=== PATIENT | female | born 1990 | race Caucasian/White ===

== ENCOUNTER → 2018-10-20 | Outpatient (CLI) | payer BC | LOC: OD 10:01 | PROVIDERS: ATTEND Physician Assistant | DX: L70.8 Other acne (principal); Z79.899 Other long term (current) drug therapy | CPT/HCPCS: 36415; 84132 ==

== ENCOUNTER → 2018-11-17 | Outpatient (CLI) | payer BC | LOC: LAB 12:24 | PROVIDERS: ATTEND Physician Assistant | DX: L70.8 Other acne (principal); Z79.899 Other long term (current) drug therapy | CPT/HCPCS: 36415; 84132 ==

== ENCOUNTER → 2018-12-21 | Outpatient (CLI) | payer BC | LOC: OD 12:29 | PROVIDERS: ATTEND Physician Assistant | DX: L70.8 Other acne (principal); Z79.899 Other long term (current) drug therapy | CPT/HCPCS: 36415; 84132 ==

== ENCOUNTER → 2019-10-11 | Outpatient (CLI) | payer BC ==
--- NOTE | 2019-10-11 10:07 | ER [facility] ASSESSMENT REPORT ---
Intake - In the Last 14 days Have you traveled outside [place]?: No Have you been in close contact with someone CONFIRMED: Yes Worked in Healthcare?: Yes --Where?: [facility] - Symptoms Subjective Fever([place] feverish): No Chills: No Muscule Aches: Yes Runny Nose: No Sore Throat: Yes Cough (New or worsening chronic cough): No Shortness of breath: No Nausea or Vomiting: No Headache: Yes Abdominal Pain: No Diarrhea(3 or more loose stools in last 24 hours): No - Do you have any of the following Chronic lung disease: Asthma or emphysema or COPD: No Cystic Fibrosis: No Diabetes: No High Blood Pressure: No Cardiovascular Disease: No Chronic Kidney Disease: No Chronic Liver Disease: No Chronic blood disorder like Sickle Cell Disease: No Weak immune system due to disease or medication: No Neurologic condition that limits movement: No Developmental delay - Moderate to Severe: No Recent (within past 2 weeks) or current : No Morbid Obesity (>100 pounds over ideal weight): No - Objective Temperature: 98.3 F Pulse Rate: 104 Respiratory Rate: 17 Blood Pressure: 119/75 O2 Sat by Pulse Oximetry: 100 Objective: Given above, testing performed: flu, strep, covid per M Nando Disposition: Home; Selfcare General - General Stated Complaint: itchy throat, muscle aches Mode of Arrival: Ambulatory Information source: Patient - HPI Notes: Marlyn 9-year-old female presents [facility] clinic for COVID-19 testing. Patient does work with [employer] and has been position at the [facility] clinic. She is also had contact with COVID positive individuals. She is reporting onset of symptoms 10/08/2019. She complains of mild muscle aches, scratchy throat, and headache. Denies any fever, chills, runny nose, cough, shortness of breath, abdominal pain, or diarrhea. Past Medical History - General Information source: Patient - Social History Smoking Status: Current Every Day Smoker Cigarette use (# per day): Yes - 10 - Past Medical History Cardiac Medical History: Reports: None Pulmonary Medical History: Reports: None EENT Medical History: Reports: None Neurological Medical History: Reports: None Endocrine Medical History: Reports: None Renal/ Medical History: Reports: None Malignancy Medical History: Reports: None GI Medical History: Reports: None Musculoskeletal Medical History: Reports None Skin Medical History: Reports None Psychiatric Medical History: Reports: None Traumatic Medical History: Reports: None Infectious Medical History: Reports: None Past Surgical History: Reports: Hx Tubal Ligation Physical Exam - General General appearance: Appears well, Alert In distress: None Notes: PHYSICAL EXAMINATION: GENERAL: Well-appearing and in no acute distress. HEAD: Atraumatic, normocephalic. EYES: sclera anicteric, conjunctiva are normal. ENT: nares patent. Moist mucous membranes. NECK: Normal range of motion, supple without lymphadenopathy. LUNGS: No increased work of breathing. Lung sounds CTAB and equal. No wheezes rales or rhonchi. HEART: Regular rate and rhythm without murmurs. ABDOMEN: Soft, nontender, normal bowel sounds, no guarding. EXTREMITIES: Normal range of motion, no pitting edema. No cyanosis. NEUROLOGICAL: A&O x 3. Normal speech. PSYCH: Normal mood, normal affect. SKIN: Warm, Dry, normal turgor, no rashes or lesions noted Diagnostic Results Laboratory Results: rapid strep and flu negative. Covid and throat culture pending Patient Education/Counseling Counseling/Education: Patient presents with symptoms associated with possible Covid 19 infection. Patient does not have emergency worrying symptoms such as difficulty breathing, shortness of breath, chest pain, pressure, confusion or cyanosis. Patient appears suitable for discharge as vital signs are stable and patient is nontoxic in appearance. Good return precautions have been discussed with patient, patient verbalized understanding and is agreeable with discharge plan of care at this time. Guidance for worsening S/SX: As a person under investigation for Covid 19, the [place] department of Health and Human Services, division of public health advises you to adhere to the following guidance until your test results are reported to you. If your test result is positive, you will receive additional information from your provider and your local health department at that time. Remain at home until you are cleared by the health provider or public health authorities. Keep a log of visitors to your home, notify any visitors to your home of your isolation status. If you plan to move to a new address or leave the county, notify the local health department in your County. Call your doctor or seek care if you have an urgent medical need. Before seeking medical care, call ahead to get instructions from the provider before arriving at the medical office clinic or hospital. Notify them that you are being tested for the virus that causes Covid 19 so that arrangements can be made, as necessary, to prevent transmission to others in the healthcare setting. Next, notify the local health department in your county. If a medical emergency arises and you need to call 911, inform the first re sponders that you are being tested for the virus that causes Covid 19. Next, notify the local health department in your county. [facility] Discharge - Discharge Clinical Impression: Encounter for screening laboratory testing for COVID-19 virus Condition: Good Disposition: Home; Selfcare
[2019-10-11 10:15] VITALS: BP 119/75
[2019-10-11 11:27] LABS: A TYPE INFLUENZA AG NEGATIVE (NEGATIVE); B INFLUENZA AG NEGATIVE (NEGATIVE)
== END ==
LOC: RDC 09:26
PROVIDERS: ATTEND Registered Nurse
DX: Z20.828 Contact with and (suspected) exposure to other viral communicable diseases (principal)
CPT/HCPCS: 87070; 87880; 87635; 87804; C9803; 99201; 99211

== ENCOUNTER 2020-03-13 10:36 | Emergency (ER) | payer BC ==
--- NOTE | 2020-03-13 10:56 | ER Document Report ---
ED General - General Chief Complaint: Allergic Reaction Stated Complaint: POSSIBE ALLERGIC REACTION Time Seen by Provider: 03/13/20 10:45 TRAVEL OUTSIDE OF THE [place] 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 Around 8:50 AM this morning the patient received this is an IM injection in the right deltoid area. About 10 minutes after the injection she complained of mild palpitations and feeling slightly hot and anxious. She was observed in the vaccination clinic for about 90 minutes. She felt better and was about to be discharged and at that point complained of a slight tickling sensation in her throat. They decided to bring her to the emergency department for further evaluation. She reports that the tickling sensation is subsiding and she is otherwise asymptomatic at this point. Patient is on Accutane for acne which she has been taking for some time. No other regular medications. No known allergies. She has had a previous tubal ligation. She is a non-smoker. Social alcohol consumption. Currently does not have a primary care physician. - Related Data Allergies/Adverse Reactions: No Known Allergies Allergy (Unverified 03/13/20 11:10) Past Medical History - General Information source: Patient, [facility] Records - Social History Smoking Status: Never Smoker Frequency of alcohol use: Social Drug Abuse: None Family History: Reviewed & Not Pertinent - Medical History Medical History: Negative Skin Medical History: Reports Other - Acne Past Surgical History: Reports: Hx Tubal Ligation Review of Systems - Review of Systems Notes: Constitutional: Negative for fever. HENT: As per HPI. Eyes: Negative for visual changes. Cardiovascular: Palpitations as per HPI. Negative for chest pain. Respiratory: Negative for shortness of breath. Gastrointestinal: Negative for abdominal pain, vomiting or diarrhea. Genitourinary: Negative for dysuria. Musculoskeletal: Negative for back pain. Skin: Negative for rash. Neurological: Negative for headaches, weakness or numbness. 10 point ROS negative except as marked above and in HPI. Physical Exam - Vital signs Vitals: Temp 98.3 F 03/13/20 10:36 Interpretation: Normal - Notes Notes: GENERAL: Female patient approximately stated age appearing in no acute distress. SKIN: Good turgor no rashes. HEAD: Normocephalic atraumatic. EYES: PERRLA. EOMI. Conjunctivae and sclerae clear. EARS: CANALS AND TMS CLEAR. NOSE: CLEAR. MOUTH/throat: Moist mucosa. Good dentition. No stridor or edema. No drooling. No swelling of lips, tongue or uvula. Normal phonation. NECK: Supple. No masses or thyromegaly. No adenopathy. Carotids 2+ without bruits. No JVD. BACK: Symmetrical without tenderness. CHEST: Respirations unlabored. Breath sounds clear and symmetrical. HEART: Regular rhythm. No murmur gallop or rub. ABDOMEN: Soft nontender without masses, organomegaly or rebound. Bowel sounds normally active. No bruits. GENITALIA: Deferred. EXTREMITIES: No edema. No calf tenderness. Cap refill less than 1.5 seconds. Dorsalis pedis and posterior tibial pulses 3+ and symmetrical. NEUROLOGICAL: GCS 15. Alert and oriented x3. Normal gait. Fluent speech. Cranial nerves II through XII intact. Sensorimotor and cerebellar normal. Normal tone. PSYCHIATRIC: Mildly anxious affect. Course - Re-evaluation Re-evalutation: 03/13/20 13:16 Patient was sent here by [facility] for evaluation for possible adverse reaction to her first Covid vaccine administered this morning. He was having some mild palpitations and had a vague sensation of tickling in her throat. She did not have any edema, skin rash or significant hemodynamic instability. Her chest was clear and her oxygenation was normal. She was observed for an extended period of almost 3 hours in the emergency department. At one point she complained of dull headache and was given some Tylenol. I am not sure this represents a true allergic reaction have so informed her. I am not recommending any specific treatment other than Tylenol at home as needed. I will also give her a referral for primary care follow-up and suggest that she seek their opinion prior to taking the follow-up immunization 3 weeks from now. Findings, clinical impression and plan of treatment have been discussed with patient/family. Understanding of current findings and recommendations has been acknowledged by them and there is agreement regarding disposition and follow-up. - Vital Signs Vital signs: Temp Pulse Resp BP Pulse Ox 98.3 F 19 136/78 H 100 03/13/20 11:00 03/13/20 13:00 03/13/20 13:00 03/13/20 13:00 - Laboratory Results Critical Laboratory Results Reviewed: No Critical Results - Radiology Results Critical Radiology Results Reviewed: No Critical Results Discharge - Discharge Clinical Impression: Adverse reaction to COVID-19 vaccine Condition: Stable Disposition: HOME, SELF-CARE Additional Instructions: Tylenol as needed. Return here as needed for new or worsening symptoms: Shortness of breath Swelling of the lips tongue or mouth Skin rash Pain that is worsening or unimproved Uncontrolled vomiting High fever or shaking chills Overall worsening Follow-up with referral physician within the next 1 week. Request their advice regarding risk/benefits of receiving booster dose of the vaccine which is scheduled in 3 weeks. Referrals: [facility] [Provider Group] - Follow up as needed
[2020-03-13] MEDS ORDERED: ACETAMINOPHEN 325 MG TABLET PO ONE (11:58)
[2020-03-13 13:16] VITALS: BP 136/78
== END 2020-03-13 13:31 | disposition home or self-care (01) ==
LOC: ER 10:36
DX: T88.1XXA Other complications following immunization, not elsewhere classified, initial encounter (principal); R00.2 Palpitations; R41.9 Unspecified symptoms and signs involving cognitive functions and awareness; Z79.899 Other long term (current) drug therapy; X58.XXXA Exposure to other specified factors, initial encounter
CPT/HCPCS: 99282

== ENCOUNTER → 2020-03-13 | Outpatient (CLI) | payer BC ==
[~2020-03-13] MED LIST: COVID-19 VACCINE (PFIZER)/PF 30 MCG/0.3 ML VIAL IM ONE; EPINEPHRINE INJ/PF 1 MG/1 ML AMPULE IM PRN
[2020-03-13 13:06] VITALS: BP 143/71
== END ==
LOC: EMPHEALTH 08:50
PROVIDERS: ATTEND Internal Medicine
DX: Z23 Encounter for immunization (principal)
CPT/HCPCS: 91300